=== PATIENT | male | born 1940 | race Caucasian/White ===

== ENCOUNTER 2019-04-13 09:06 | Inpatient (IN) ==
--- NOTE | 2019-03-25 14:31 | Anesthesiology Consultation ---
Date of Service March 25, 2019 Assessment & Plan (1) Encounter for pre-operative examination: - Awaiting surgeon-ordered PCP clearance scheduled scheduled 04/02 ([facility]) and response regarding elevated potassium/creatinine response. - Awaiting cardiology office visit scheduled 03/2019 ([facility]). - Check [facility] AM DOS Chart Review Chart Review: Patient seen in Pre Admission Testing Teaching & Discussion Pre-Anesthesia Teaching/Discussion Notes: Instructed NPO after midnight before surgery,except medications with 15 cc of water. Medication instructions provided according to the PAT guidelines. History Surgery Operation Date: 04/13/19 07:00 Proposed Procedures p Right Total Knee Revision Arthroplasty, Tibia and Femur - Parmjit Posada, Height/Weight Height: 5 ft 10.5 in Weight: 81.2 kg Allergies Allergy/AdvReac Type Severity Reaction Status Date / Time acetaminophen [From Tylox] Allergy Unknown unknown Verified 03/25/19 15:10 reaction oxycodone [From Tylox] Allergy Unknown unknown Verified 03/25/19 15:10 reaction morphine Allergy unknown Verified 03/25/19 15:10 reaction naloxone Allergy unknown Verified 03/25/19 15:10 reaction pentazocine Allergy unknown Verified 03/25/19 15:10 reaction Medications Home Medications Medication Instructions Recorded Confirmed Last Taken Metoprolol 50 mg PO BID 03/19/19 03/19/19 Unknown acetaminophen [Tylenol Arthritis 650 mg PO BID 03/19/19 03/19/19 Unknown Pain] aspirin [Aspir-81] 81 mg PO DAILY 03/19/19 03/19/19 Unknown cholecalciferol (vitamin D3) 2,000 unit PO DAILY 03/19/19 03/19/19 Unknown [Vitamin D3] cyanocobalamin (vitamin B-12) 500 mcg PO DAILY 03/19/19 03/19/19 Unknown [Vitamin B-12] gemfibrozil 600 mg PO BID 03/19/19 03/19/19 Unknown glipizide 5 mg PO DAILY 03/19/19 03/19/19 Unknown magnesium 250 mg PO DAILY 03/19/19 03/19/19 Unknown metformin 1,000 mg PO BID 03/19/19 03/19/19 Unknown pravastatin 40 mg PO DAILY 03/19/19 03/19/19 Unknown pantoprazole 20 mg PO DAILY 03/25/19 03/25/19 Unknown Past Medical History Medical History Arthritis Diabetes NIDDM History of heart attack 1991 - s/p CABG Hyperlipidemia Hypertension Poor historian Exercise / Class Metabolic Activity III < 4 Walking/Shop/Light housework (cane prn) Past Family History Family History Brother Family history of colon cancer Son Family history of pancreatic cancer Has 1 child Past Surgical History Surgical History History of cardiac cath no stents, s/p CABG (1991) History of colonoscopy History of surgery on extremity L LEG History of total right knee replacement Social History Smoking Status: Former smoker Do You Dip or Chew Tobacco: Yes (3/4 CAN DAILY / ADVISED NPO) Smoking End Date: YRS AGO Hx Alcohol Use: Yes Alcohol type: beer alcohol intake frequency: a few times a month Hx Substance Use: No substance use type: does not use Review of Systems Patient denies chest pain, shortness of breath, dyspnea on exertion, joint pain, reflux, cough, wheezing, palpitations. Physical Exam Vital Signs VITALS BP 122/61 P 69 TEMP 97.7 SP02 99%RA RESP 18 PHYSICAL Full neck and c-spine range of motion. Full TMJ range of motion. TMD 3 finger breaths Mallampati Score 2 Dentition: intact Lungs: clear throughout to auscultation Cardiac: regular rate and rhythm, no murmurs noted Spine: normal Carotid arteries: negative bruit Extremities: no edema Trimmed gamez Testing Laboratory Results 03/25/19 14:58 03/25/19 14:58 PT 10.3 Seconds (9.0-12.0) 03/25/19 14:58 INR 1.0 (0.9-1.1) 03/25/19 14:58 APTT 27.1 Seconds (21.0-31.0) 03/25/19 14:58 Hemoglobin A1c 5.4 % (4.5-5.6) 03/25/19 14:58 Urine Color Yellow 03/25/19 14:58 Urine Appearance Clear (Clear) 03/25/19 14:58 Urine pH 5.0 (4.5-7.5) 03/25/19 14:58 Ur Specific [place] 1.016 (1.000-1.030) 03/25/19 14:58 Urine Protein Negative (Negative) 03/25/19 14:58 Urine Glucose (UA) Negative (Negative) 03/25/19 14:58 Urine Ketones Negative (Negative) 03/25/19 14:58 Urine Nitrite Negative (Negative) 03/25/19 14:58 Ur Leukocyte Esterase Negative (Negative) 03/25/19 14:58 Blood Type O Positive 03/25/19 14:58 Antibody Screen NEGATIVE 03/25/19 14:58 Chest X-Ray Date: 03/25/19 Prior median sternotomy. Lungs are clear. Diaphragms are smooth. IMPRESSION: No acute process.
[2019-03-25 15:28] LABS: Basophils # (auto) 0.03 K/uL (0-0.2); Basophils % (auto) 0.4 %; Eosinophils # (auto) 0.04 K/uL (0-0.5); Eosinophils % (auto) 0.6 %; Hematocrit (blood only) 38.4 % (42-52); Hemoglobin 13.3 g/dL (14.0-18.0); Lymphocytes # (auto) 2.11 K/uL (1.2-3.4); Lymphocytes % (auto) 29.6 %; Mean Corpuscular Hemoglobin 31.6 pg (25-34); Mean Corpuscular Hgb Conc 34.6 g/dL (32-36); Mean Corpuscular Volume 91.2 fL (80-100); Mean Platelet Volume 11.8 fL (7.4-10.4); Monocytes # (auto) 0.73 K/uL (0.11-0.59); Monocytes % (auto) 10.2 %; Neutrophils # (auto) 4.23 K/uL (1.4-6.5); Neutrophils % (auto) 59.2 %; Platelet Count 202 K/uL (130-400); RDW Coefficient of Variation 13.5 % (11.5-14.5); RDW Standard Deviation 44.9 fL (36.4-46.3); Red Blood Count 4.21 M/uL (4.7-6.1); White Blood Count 7.14 K/uL (4.8-10.8)
[2019-03-25 15:36] LABS: Appearance Urine Clear (Clear); Bilirubin Urine Negative (Negative); Blood Urine Negative (Negative); Color Urine Yellow; Glucose Urine UA Negative (Negative); Ketones Urine Negative (Negative); Leukocyte Esterase Urine Negative (Negative); Nitrite Urine Negative (Negative); Protein Urine Negative (Negative); Specific Gravity Urine 1.016 (1.000-1.030); Urobilinogen Urine Negative (Negative)
--- NOTE | 2019-03-25 15:36 | XRay Report ---
XR chest Pre-admission PA/Lat CLINICAL HISTORY: pat preoperative evaluation COMPARISON STUDY: No previous studies for comparison. FINDINGS: Prior median sternotomy. Lungs are clear. Diaphragms are smooth. IMPRESSION: No acute process. ACT 112: Negative or not required by law. The above report was generated using voice recognition software. It may contain grammatical, syntax or spelling errors. Electronically signed by: Carlitos Steve M.D. 03/25/2019 3:34 PM
[2019-03-25 15:47] LABS: Partial Thromboplastin Time 27.1 Seconds (21.0-31.0); Prothrombin Time 10.3 Seconds (9.0-12.0)
[2019-03-25 16:04] LABS: Albumin Level 3.9 gm/dl (3.4-5.0); Calcium 9.6 mg/dl (8.5-10.1); Est GFR (African American) 44.4; Est GFR (Non-African American) 38.3; Potassium 5.8 mmol/L (3.5-5.1)
[2019-03-26 05:41] LABS: Estimated Average Glucose 108 mg/dl; Hemoglobin A1C 5.4 % (4.5-5.6)
--- NOTE | 2019-03-26 16:37 | Electrocardiogram Report ---
Test Reason : Blood Pressure : / mmHG Vent. Rate : 072 BPM Atrial Rate : 072 BPM P-R Int : 312 ms QRS Dur : 094 ms QT Int : 406 ms P-R-T Axes : 067 008 040 degrees QTc Int : 444 ms Poor data quality, interpretation may be adversely affected Sinus rhythm with 1st degree A-V block with occasional Premature ventricular complexes Low voltage QRS Borderline ECG No previous ECGs available Confirmed by Gal Mayfield ([id number]) on 03/26/2019 4:36:37 PM Referred By: Parmjit Posada Confirmed By:Gal Mayfield
--- NOTE | 2019-04-12 16:16 | History & Physical Report ---
Date of Service April 12, 2019 Assessment & Plan (1) Failed total right knee replacement: I have indicated the patient for revision right total knee replacement. The risks, benefits and complications of surgery were explained to the patient which include but not limited to infection, acute blood loss, DVT/PE, injury to nerves, vessels, bone, soft tissue, arthrofibrosis, chronic pain, failure of the prosthesis, knee dislocation, leg length discrepancy, need for additional surgery, cardiac and pulmonary events and . The patient wished to proceed with surgery and informed consent was obtained at this time. We will plan for lovenox post-operatively for DVT prophylaxis. Upon discharge the patient will be discharged home with home health services. Appropriate clearances by PCP and cardiology were obtained. Patient has history of CKD and DM with Cr baseline at 1.69/1.70 pre-operatively, will monitor and avoid nephrotoxic medication. 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 Primary total knee surgery performed in [address] Finney in [facility]. Patient was worked up pre-operatively, bone scan and inflammatory labs negative for infection. The patient has failed outpatient conservative treatments to this point which included NSAIDs, bracing and a home exercise/walking program. The patient's pain and limited function have progressed to the point where they severely hinder their activities of daily living and they no longer tolerate exercise programs. They are requesting to proceed with revision total knee replacement surgery. Allergies Allergy/AdvReac Type Severity Reaction Status Date / Time acetaminophen [From Tylox] Allergy Unknown unknown Verified 04/13/19 09:47 reaction oxycodone [From Tylox] Allergy Unknown unknown Verified 04/13/19 09:47 reaction morphine Allergy unknown Verified 04/13/19 09:47 reaction naloxone Allergy unknown Verified 04/13/19 09:47 reaction pentazocine Allergy unknown Verified 04/13/19 09:47 reaction Home Medications Home Medications Medication Instructions Recorded Confirmed Type Metoprolol 50 mg PO BID 03/19/19 04/13/19 History acetaminophen [Tylenol Arthritis 650 mg PO BID 03/19/19 04/13/19 History Pain] aspirin [Aspir-81] 81 mg PO DAILY 03/19/19 04/13/19 History cholecalciferol (vitamin D3) 2,000 unit PO DAILY 03/19/19 04/13/19 History [Vitamin D3] cyanocobalamin (vitamin B-12) 500 mcg PO DAILY 03/19/19 04/13/19 History [Vitamin B-12] gemfibrozil 600 mg PO BID 03/19/19 04/13/19 History glipizide 5 mg PO DAILY 03/19/19 04/13/19 History magnesium 250 mg PO DAILY 03/19/19 04/13/19 History metformin 1,000 mg PO BID 03/19/19 04/13/19 History pravastatin 40 mg PO DAILY 03/19/19 04/13/19 History pantoprazole 20 mg PO DAILY 03/25/19 04/13/19 History Past Med/Surg History Medical History (Updated 04/13/19 @ 11:03 by Johnson Mercado MD) Arthritis Diabetes NIDDM History of heart attack 1991 - s/p CABG Hyperlipidemia Hypertension Poor historian Renal insufficiency Surgical History (Updated 04/13/19 @ 11:04 by Johnson Mercado MD) History of cardiac cath no stents, s/p CABG (1991) History of colonoscopy History of surgery on extremity L LEG History of total right knee replacement Hx of CABG Family History Brother Family history of colon cancer Son Family history of pancreatic cancer Has 1 child Social History Preferred Language: Frisian Communication Ability: Effective Director [employer] Required: No Beliefs That Will Affect Care: Mandaen Mandaen Beliefs: BUDDHISM Current Living Situation: Alone Other Information That Helps Us Care for You: No Feels Safe at Home: Yes Smoking Status: Former smoker Do You Dip or Chew Tobacco: Yes (3/4 CAN DAILY / ADVISED NPO) ; Smoking End Date: YRS AGO ; Hx Alcohol Use: Yes Alcohol type: beer Hx Substance Use: No Review of Systems Review of Systems: All systems reviewed & are unremarkable except as noted in HPI & below Constitutional: as per Subjective / HPI Physical Exam Physical Exam: RLE NVSI +EHL/FHL/TA/GS SILT grossly, +2 DP pulse, compartments soft NT, limited painful ROM, 5-120 degrees of flexion, moderate varus/valgus instability, +crepitus Constitutional: WD/WN, vitals as above Eyes: PERRL, conjunctivae normal, anicteric sclerae ENMT: external ear and nose normal, oropharynx normal Neck: trachea midline, no thyromegaly Respiratory: normal respiratory effort, lungs clear to auscultation Cardiovascular: RRR, no murmur, no edema Gastrointestinal (Abdomen): normal bowel sounds, soft, nontender, no hepatospl enomegaly Musculoskeletal: no cyanosis or clubbing, extremities motor strength 5/5 Skin: no rashes, warm and dry Neurologic: patellar DTR's 2+ bilat, sensation intact Psychiatric: A+Ox3, euthymic affect Lymphatic: no cervical or axillary lymphadenopathy Results & Data Diagnostic Findings Multiple views of the right knee demonstrates gross loosening of the tibial component with subsidence/varus deformity, lateral translation and degenerative patella with osteophytes.
[~2019-04-13 09:06] MED LIST: ACETAMINOPHEN 500 MG TAB PO SCH; BUPIVACAINE 0.5 % 5 MG/1 ML PF 10ML VIAL ONE; CEFAZOLIN 2000MG 2,000 MG/15 ML SYR IV SCH; CeleBREX 200 MG CAP PO SCH; EPINEPHrine INJ 1 MG/ML AMP ONE; FAMOTIDINE 20 MG TAB PO SCH; LR 500ML BOLUS, THEN 15ML/HR IV SCH; METOCLOPRAMIDE HCL 10 MG TABLET PO SCH; ROPIVACAINE 0.5% 5 MG/ML 30 ML VIAL ONE; ROPIVACAINE 0.5% HCL/PF 150 MG, BUPIVACAINE 0.5% MPF 30 ML, EPINEPHrine 30MG/30ML (OR U... INFIL SCH; SODIUM CHLORIDE 0.9% 1,000 ML IV SCH; TRANEXAMIC ACID / 0.7% NACL 1,000 MG/100 ML BAG IV SCH; TRANEXAMIC ACID 1,000 MG **IV Intra-op IV SCH; dexAMETHasone 4 MG TAB PO SCH
[2019-04-13] MEDS ORDERED: fentaNYL citrate 100 MCG/2 ML VIAL ONE ×2 (09:32→14:50)
[2019-04-13] MEDS ORDERED: MIDAZOLAM HCL 1 MG/ML 2ML VIAL ONE ×2 (09:32)
[2019-04-13] MEDS ORDERED: ONDANSETRON INJ 2 MG/ML 2 ML VIAL IV PRN ×2 (10:00→17:45)
[2019-04-13] MEDS ORDERED: ATROPINE SULFATE 0.1 MG/ML 10ML SYR IV PRN (10:00)
[2019-04-13] MEDS ORDERED: ePHEDrine sulfate 50 MG/ML AMP IV PRN (10:00)
[2019-04-13] MEDS ORDERED: fentaNYL citrate 100 MCG/2 ML VIAL IV PRN (10:00)
[2019-04-13] MEDS ORDERED: MEPERIDINE HCL 25 MG/ML CARP IV PRN (10:00)
[2019-04-13] MEDS ORDERED: PHENYLEPHRINE 100MCG/ML 5ML SYR IV PRN (10:00)
[2019-04-13] MEDS ORDERED: LABETALOL HCL IV 5 MG/ML 20ML IV PRN (10:00)
[2019-04-13 10:27] LABS: BUN Creatinine Ratio 19.4 (10-20); Calcium 9.2 mg/dl (8.5-10.1); Creatinine Clr Calc Pharmacy 43.4 ml/min; Est GFR (African American) 53.1; Est GFR (Non-African American) 45.8; Potassium 4.5 mmol/L (3.5-5.1)
[2019-04-13] MEDS ORDERED: BACITRACIN INJ 50,000 UNIT VIAL ONE (10:33)
[2019-04-13] MEDS ORDERED: ORTHO JOINT ANESTHETIC ONE (10:33)
--- NOTE | 2019-04-13 11:06 | History & Physical Bridge Note ---
Date of Service April 13, 2019 History & Physical Bridge Note I have examined the patient, reviewed the History & Physical and in the interval since the performance of the History & Physical I have noted the following changes of clinical significance: no changes noted
[2019-04-13] MEDS ORDERED: EPINEPHrine INJ 1 MG/ML AMP ONE (12:29)
[2019-04-13] MEDS ORDERED: PROPOFOL IV EMULSION 10 MG/ML 20 ML VIAL IV ONE ×6 (13:49→16:21)
--- NOTE | 2019-04-13 16:16 | Post Operative Brief Note ---
Immediate Post Op Note v1 Date of Surgery April 13, 2019 Pre & Post Diagnosis Operation Date: 04/13/19 11:30 Pre-Op Diagnosis: Failed Right Total Knee Arthroplasty with Aseptic Loosening Post-Op Diagnosis: Failed Right Total Knee Arthroplasty with Aseptic Loosening I identified the patient and participated in the time-out.: Yes Procedure Operation Date: 04/13/19 11:30 Actual Procedures p Right Total Knee Revision Arthroplasty - Tibia And Femur(Right) - Parmjit Posada DO Surgeon Parmjit Posada DO Asset Protection Manager Mariusz Carmichael Estimated Blood Loss 225 Findings Consistent with Post-Op Diagnosis Fluids 2200 cc LR Drains Esquivel Catheter (A 16 [place] esquivel catheter was inserted by Rona Szymanski RN, without difficulty, clear yellow urine obtained, output to be monitored by Anesthesia.) and Hemovac Drain Anesthesia Type Spinal MAC Complications none Disposition Disposition: Recovery Room Overlapping Procedure I was present for: the critical portions of procedure. I was immediately available: during the entire case. Back up surgeon: was not required during procedure.
--- NOTE | 2019-04-13 16:18 | Operative Report ---
Post Operative Report Pre & Post Diagnosis Operation Date: 04/13/19 11:30 Pre-Op Diagnosis: Failed Right Total Knee Arthroplasty with Aseptic Loosening Post-Op Diagnosis: Failed Right Total Knee Arthroplasty with Aseptic Loosening I identified the patient and participated in the time-out.: Yes Procedure Operation Date: 04/13/19 11:30 Actual Procedures p Right Total Knee Revision Arthroplasty - Tibia And Femur(Right) - Parmjit Posada DO Surgeon Parmjit Posada DO Firearms Specialist Mariusz Carmichael Estimated Blood Loss 225 Findings Consistent with Post-Op Diagnosis Fluids 2200 cc LR Specimens none Drains HMV drain deep Anesthesia Type Spinal MAC Disposition Disposition: Recovery Room Indications The patient is a 78 year old male who presents with complaints of painful right total knee with aseptic loosening. Primary total knee surgery performed in [address] Finney in [facility]. Patient was worked up pre-operatively, bone scan and inflammatory labs negative for infection. The patient has failed outpatient conservative treatments to this point which included NSAIDs, bracing and a home exercise/walking program. The patient's pain and limited function have progressed to the point where they severely hinder their activities of daily living and they no longer tolerate exercise programs. They are requesting to proceed with revision total knee replacement surgery. I have indicated the patient for revision right total knee replacement. The risks, benefits and complications of surgery were explained to the patient which include but not limited to infection, acute blood loss, DVT/PE, injury to nerves, vessels, bone, soft tissue, arthrofibrosis, chronic pain, failure of the prosthesis, knee dislocation, leg length discrepancy, need for additional surgery, cardiac and pulmonary events and . The patient wished to proceed with surgery and informed consent was obtained at this time. We will plan for lovenox post-operatively for DVT prophylaxis. Upon discharge the patient will be discharged home with home health services. Appropriate clearances by PCP and cardiology were obtained. Patient has history of CKD and DM with Cr baseline at 1.69/1.70 pre-operatively, will monitor and avoid nephrotoxic medication. Description of Procedure Components: [employer] Nexgen LCCK: Femur LCCK Size F, 10mm distal lateral augment, [id number] offset stem. Tibia Size 5 AP wedge, 15mm medial augment, 10mm lateral augment, [id number] offset stem, tibial articular surface Size 17mm LCCK. Following induction of spinal anesthesia, a tourniquet was applied to the proximal aspect of the thigh and the patient's right leg was prepped and draped in the usual sterile manner. A timeout was performed and site ryan verified. Limb was exsanguinated with an esmarch bandage and tourniquet was inflated to 300 mmHg. The prior incision was identified and a longitudinal midline incision was made over the anterior knee. Previous surgical scar was excised. Subcutaneous tissue was sharply dissected down to fascia. Electrocautery was used for hemostasis. Next a medial parapatellar arthrotomy was performed. Meticulous removal of hypertrophic synovium and scar tissue was removed with Bovie. The patella was subluxed laterally and the knee was flexed. A ford retractor was used to expose the synovium above on the anterior aspect of the femur and removed down to bone. Next, the anterior fat pad was removed to aid in visualization. The medial face of the tibia was cleared of soft tissue first with a bovie and a ramon elevator. This tissue was retracted posteriorly using a blunt hohmann. Once adequate access was obtained to the total knee prosthesis we removed the tibial articular surface. Next we turned our attention to the femoral component and utilizing a microsagittal saw loosen the interface between the distal femur component and cement followed by flexible osteotomes. 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 Meticulous removal of residual cement and soft tissue from the bone was performed. Next we turned our attention to the proximal tibia, the tibia component was grossly loose and free floating inside the bone. Utilizing to flat wide osteotomes we were able to lever the component out of the bone. Once again there was minimal bone loss. Next we meticulously removed remaining cement and cleared the distal femur proximal tibia and any remaining soft tissue. We gained access to both the intramedullary tibia and femur and intramedullary membrane was scraped with curved curettes. Next sequential intramedullary reaming was performed by hand on both the tibia and the femur until adequate bone chatter was appreciated. Reaming was stopped at 15 mm on the tibia and 18 mm on the femur. At this time the tourniquet was dropped at 60 minutes. The intramedullary reamer was left in the tibia and the T-handle was removed. The proximal tibia cutting guide was attached to the reamer and pinned in place. Intramedullary reamer was removed and the proximal tibia was cut removing minimal bone until there was a flat cut perpendicular to the mechanical axis. There was a defect to the medial tibial plateau. A 5mm medial augment cut was performed. We confirmed the cut with drop ronnell and spacer block. Next the proximal tibia was assessed and two bent Hohmanns were placed medial and lateral to aid in visualization. The appropriate tibia size and rotation was selected and a size 5 AP wedge tibial plate with 10mm lateral and 15mm medial augments was pinned into place with appropriate rotation. Preparation of the tibia was completed utilizing the matching tibial drill and broach. The trial tibial plate was removed and the trial size 5 tibia with offset 15 x 100mm stem with 10mm lateral and 15mm medial augments was attached to the proximal tibia and impacted into place. This provided good fit and fill of the proximal tibia. Next we turned our attention to the distal femur. Appropriate sized provisional femoral component was fixed to the distal femur inline with the transcondylar axis. Distal femur lateral condyle augment cut was performed eliminating the defect left behind from the bone cyst. Gold pins placed in distal femur and provisional femoral component removed. LCCK 4 in 1 femoral cut block with distal lateral 10mm augment was place over gold pins then pinned into place. Gold pins removed and distal femur bone cuts were performed. Box cut was performed utilizing a reciprocal saw and the pins and 4 in 1 guide removed. The final trial size F LCCK femur with offset [id number] stem with 10mm distal lateral femoral augment was inserted and impacted into place. A 12mm LPS tibial articular surface was trialed. Sequential trialing of tibial sizes was performed, increasing to a tibial articular surface size 17mm LCCK. Varus- valgus balance was assessed in 0 degrees of extension and 30, 60 and 90 degrees of flexion. A final tibial articular surface size 17mm LCCK was chosen. Access was gained to the patella and meticulous removal of fibrous soft tissue and osteophytes was performed. The patella was very thin, 9-10mm in thickness. Due to lack of bone stock, the patella was left unresurfaced. The knee was found to be well balanced, well aligned, with excellent patellar tracking. The leg was rewrapped with new Esmarch and tourniquet inflated once again at this time. The trials were removed and final components were obtained and assembled on the back table. Aquamantys was utilized for any bleeders and Orth omix solution injected into the posterior capsule. The knee was irrigated with copious amounts of sterile saline solution mixed with bacitracin. Access to the proximal tibia was once again obtained utilizing two bent hohmann retractors and the proximal tibia and distal femur were dried with lap sponges. The final components were cemented into place utilizing Palacos cement and all excess cement was removed. A trial tibial articular surface was placed while cemented hardened. Knee stability was once again assessed and the final component inserted. The knee was injected with the remaining Orthomix solution and irrigated once more with sterile saline solution mixed with bacitracin. Hemovac drains 2 were inserted deep to the capsule. The capsulotomy was closed with #1 Vicryl followed by subcutaneous closure with 2-0 Vicryl suture. Skin closure was performed using bita, sterile dressings were applied which included Prevena incisional vac, drain sponge, webrill and josh wrap. The patient was extubated in the OR and transported to the PACU in stable condition. Due to the complex nature of the procedure, the entire surgery was performed with the operational assistance of Mariusz carmichael PA-C. The circulation assistant, under direct supervision, was involved in the actual performance of all aspects of the surgical procedure including patient positioning, hemostasis, tissue retraction, instrument management and wound closure. I attest to the content of the Intraoperative Record and any orders documented therein. Any exceptions are noted below.
[2019-04-13] MEDS ORDERED: ONDANSETRON INJ 2 MG/ML 2 ML VIAL ONE (16:21)
[2019-04-13] MEDS ORDERED: HYDROmorphone HCL 2 MG TAB PO PRN (16:38)
--- NOTE | 2019-04-13 17:21 | Anesthesiology Progress Note ---
Date of Service April 13, 2019 Anesthesia Post Procedure Vital Signs Vital Signs: Temp Pulse Pulse Resp BP Pulse Ox 04/13/19 17:10 36.7 C 73 16 111/59 L 94 04/13/19 17:00 76 27 H 109/63 94 04/13/19 16:50 74 17 106/56 L 93 04/13/19 16:42 36.5 C 78 16 88/50 L 98 04/13/19 10:04 36.5 C 75 18 121/69 98 Transfer of Care Handoff Completed per policy Notes Mental Status: alert / awake / arousable Patient Amnestic to Procedure: Yes Nausea / Vomiting: adequately controlled Pain: adequately controlled Airway Patency, RR, SpO2: stable & adequate BP & HR: stable & adequate Hydration State: stable & adequate Neuraxial Anesthesia: was administered and sensory block is resolving Anesthetic Complications: no major complications apparent
[2019-04-13] MEDS ORDERED: MAGNESIUM HYDROXIDE SUSP 30 ML UDC PO PRN (17:45)
[2019-04-13] MEDS ORDERED: bisacodyL 10 MG SUPP PR PRN (17:45)
[2019-04-13] MEDS ORDERED: NALOXONE HCL 0.4 MG/1 ML VIAL/CARP IV PRN (17:45)
[2019-04-13] MEDS ORDERED: METOCLOPRAMIDE HCL INJ 5 MG/ML 2 ML VIAL IV PRN (17:45)
[2019-04-13] MEDS ORDERED: HYDROmorphone INJ 0.5 MG/0.5 ML SYR IV PRN (17:45)
[2019-04-13] MEDS ORDERED: PHARMACY GLYCEMIC MGMT CONSULT PRN (17:45)
[2019-04-13] MEDS ORDERED: TRAMADOL HCL 50 MG TABLET PO PRN (17:45)
--- NOTE | 2019-04-13 17:59 | XRay Report ---
RIGHT KNEE 2 VIEWS History: Right total knee arthroplasty. Degenerative arthritis. Postop. FINDINGS: The patient is status post a right total knee arthroplasty. The hardware is intact. No frac ture or dislocation. Skin bita and surgical drains are in place. IMPRESSION: Right total knee arthroplasty. No evidence for hardware complication. ACT 112: Negative or not required by law. Electronically signed by: Johnson Alvarez M.D. 04/13/2019 5:58 PM
[2019-04-13] MEDS ORDERED: GLUCOSE 40% GEL 15 GM TUBE PO PRN (18:00)
[2019-04-13] MEDS ORDERED: GLUCAGON FOR INJ 1 MG VIAL IM PRN (18:00)
[2019-04-13] MEDS ORDERED: DEXTROSE 50% 50 ML SYRINGE IV PRN (18:00)
[2019-04-13] MEDS ORDERED: GLUCOSE 10 TABS/TUBE PO PRN (18:00)
[2019-04-13] MEDS ORDERED: NovoLIN-N (NPH) PER UNIT CHARGE SQ ONE (18:00)
[2019-04-13] MEDS ORDERED: CARBOHYDRATES FOR HYPOGLYCEMIA PO PRN (18:00)
--- NOTE | 2019-04-13 19:05 | Orthopedic Progress Note ---
Date of Service April 13, 2019 Assessment & Plan (1) Failed total right knee replacement: s/p Revision R TKA -ancef x 24 -DVT ppx: SCDs, TEDs, Lovenox -WBAT RLE -PT/OT -PO XR demonstrates well aligned well fixed prothesis without fracture/dislocation -am labs -DC planning Subjective Post Operative Progress Note Patient seen sitting up in bed, comfortable, denies complaints, pain well controlled, no acute issues. Spinal slowly wearing off. Review of Systems Review of Systems: All systems reviewed & are unremarkable except as noted in HPI & below Constitutional: as per Subjective / HPI Physical Exam Physical Exam: Limited secondary to spinal anesthesia, +2 DP pulse, compartments soft NT, dressing CDI Constitutional: WD/WN, vitals as above Results & Data ([facility]) Vital Signs (Past 12 Hours) Vital Signs Temp Pulse Pulse Resp BP Pulse Ox 04/13/19 18:46 36.7 C 72 18 113/59 L 98 04/13/19 17:30 36.7 C 80 19 111/70 95 04/13/19 17:20 36.7 C 75 15 108/57 L 95 04/13/19 17:10 36.7 C 73 16 111/59 L 94 04/13/19 17:00 76 27 H 109/63 94 04/13/19 16:50 74 17 106/56 L 93 04/13/19 16:42 36.5 C 78 16 88/50 L 98 04/13/19 10:04 36.5 C 75 18 121/69 98
[2019-04-13] MEDS: INSULIN ASPART 100 UNITS/ML 3 ML PEN SC SCH ×2 (19:12→21:30)
[2019-04-13] MEDS: SODIUM CHLORIDE 0.9% 1000ML 1,000 ML IV SCH (19:27)
[2019-04-13] MEDS: CEFAZOLIN 2000MG 2,000 MG/15 ML SYR IV SCH (21:22)
[2019-04-13] MEDS: DOCUSATE SODIUM 100 MG CAP PO SCH (21:22)
[2019-04-13] MEDS: ACETAMINOPHEN 500 MG TAB PO SCH (21:23)
[2019-04-13] MEDS: METOPROLOL TARTRATE 50 MG TAB PO SCH (21:23)
[2019-04-13] MEDS: SENNA 8.6 MG TAB PO SCH (21:23)
[2019-04-14] MEDS: INSULIN ASPART 100 UNITS/ML 3 ML PEN SC SCH ×6 (00:55→21:11)
[2019-04-14] MEDS: CEFAZOLIN 2000MG 2,000 MG/15 ML SYR IV SCH (04:43)
[2019-04-14 05:23] LABS: Hematocrit (blood only) 31.5 % (42-52); Hemoglobin 10.6 g/dL (14.0-18.0); Mean Corpuscular Hemoglobin 30.8 pg (25-34); Mean Corpuscular Hgb Conc 33.7 g/dL (32-36); Mean Corpuscular Volume 91.6 fL (80-100); Mean Platelet Volume 12.6 fL (7.4-10.4); Platelet Count 177 K/uL (130-400); RDW Coefficient of Variation 13.6 % (11.5-14.5); RDW Standard Deviation 44.9 fL (36.4-46.3); Red Blood Count 3.44 M/uL (4.7-6.1); White Blood Count 14.35 K/uL (4.8-10.8)
[2019-04-14] MEDS: ACETAMINOPHEN 500 MG TAB PO SCH ×3 (05:27→21:09)
[2019-04-14 05:46] LABS: BUN Creatinine Ratio 20.5 (10-20); Calcium 8.2 mg/dl (8.5-10.1); Creatinine Clr Calc Pharmacy 42.8 ml/min; Est GFR (African American) 52.2; Potassium 4.2 mmol/L (3.5-5.1)
[2019-04-14] MEDS: SODIUM CHLORIDE 0.9% 1000ML 1,000 ML IV SCH (06:13)
--- NOTE | 2019-04-14 07:33 | Orthopedic Progress Note ---
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 Patient reports RLE numbness and difficulty moving. Otherwise doing well. Recheck in afternoon patient reports improvement in sensation but weakness to his RLE . Ambulating well with PT. Review of Systems Review of Systems: All systems reviewed & are unremarkable except as noted in HPI & below Constitutional: as per Subjective / HPI Physical Exam Physical Exam: RLE NVSI +EHL/FHL, decreased MS to TA, SILT grossly, +2 DP pulse, compartments soft NT, dressing cdi. Constitutional: WD/WN, vitals as above Results & Data ([facility]) Vital Signs (Past 12 Hours) Vital Signs Temp Pulse Resp BP Pulse Ox 04/14/19 07:03 37.1 C 82 16 93/50 L 95 04/14/19 04:15 36.9 C 80 16 108/63 93 04/13/19 22:56 36.8 C 70 16 110/57 L 96 04/13/19 20:50 36.9 C 89 18 116/56 L 95 04/13/19 19:59 36.5 C 85 19 115/53 L 97 Laboratory Results 04/14/19 04/14/19 04/14/19 Range/Units 04:44 04:44 04:42 WBC 14.35 H (4.8-10.8) K/uL RBC 3.44 L (4.7-6.1) M/uL Hgb 10.6 L (14.0-18.0) g/dL Hct 31.5 L (42-52) % MCV 91.6 (80-100) fL MCH 30.8 (25-34) pg MCHC 33.7 (32-36) g/dL RDW Std Deviation 44.9 (36.4-46.3) fL RDW Coeff of Oleksandr 13.6 (11.5-14.5) % Plt Count 177 (130-400) K/uL MPV 12.6 H (7.4-10.4) fL Sodium 141 (136-145) mmol/L Potassium 4.2 (3.5-5.1) mmol/L Chloride 111 H (98-107) mmol/L Carbon Dioxide 23 (21-32) mmol/L Anion Gap 7.0 (3-11) BUN 30 H (7-18) mg/dl Creatinine 1.47 H (0.6-1.4) mg/dl Est Cr Clr Drug Dosing 42.8 ml/min Est GFR ( Amer) 52.2 Est GFR (Non-Af Amer) 45.0 BUN/Creatinine Ratio 20.5 H (10-20) Glucose 62 L (70-99) mg/dl POC Glucose 74 (70-99) mg/dl Calcium 8.2 L (8.5-10.1) mg/dl Blood Type Antibody Screen Crossmatch Draw and Hold 04/14/19 04/14/19 04/14/19 Range/Units 04:20 04:18 00:22 WBC (4.8-10.8) K/uL RBC (4.7-6.1) M/uL Hgb (14.0-18.0) g/dL Hct (42-52) % MCV (80-100) fL MCH (25-34) pg MCHC (32-36) g/dL RDW Std Deviation (36.4-46.3) fL RDW Coeff of Oleksandr (11.5-14.5) % Plt Count (130-400) K/uL MPV (7.4-10.4) fL Sodium (136-145) mmol/L Potassium (3.5-5.1) mmol/L Chloride (98-107) mmol/L Carbon Dioxide (21-32) mmol/L Anion Gap (3-11) BUN (7-18) mg/dl Creatinine (0.6-1.4) mg/dl Est Cr Clr Drug Dosing ml/min Est GFR ( Amer) Est GFR (Non-Af Amer) BUN/Creatinine Ratio (10-20) Glucose (70-99) mg/dl POC Glucose 49 L* 48 L* 133 H (70-99) mg/dl Calcium (8.5-10.1) mg/dl Blood Type Antibody Screen Crossmatch Draw and Hold 04/13/19 04/13/19 04/13/19 Range/Units 20:49 20:48 17:52 WBC (4.8-10.8) K/uL RBC (4.7-6.1) M/uL Hgb (14.0-18.0) g/dL Hct (42-52) % MCV (80-100) fL MCH (25-34) pg MCHC (32-36) g/dL RDW Std Deviation (36.4-46.3) fL RDW Coeff of Oleksandr (11.5-14.5) % Plt Count (130-400) K/uL MPV (7.4-10.4) fL Sodium (136-145) mmol/L Potassium (3.5-5.1) mmol/L Chloride (98-107) mmol/L Carbon Dioxide (21-32) mmol/L Anion Gap (3-11) BUN (7-18) mg/dl Creatinine (0.6-1.4) mg/dl Est Cr Clr Drug Dosing ml/min Est GFR ( Amer) Est GFR (Non-Af Amer) BUN/Creatinine Ratio (10-20) Glucose (70-99) mg/dl POC Glucose 280 H 315 H* 256 H (70-99) mg/dl Calcium (8.5-10.1) mg/dl Blood Type Antibody Screen Crossmatch Draw and Hold 04/13/19 04/13/19 04/13/19 Range/Units 16:46 10:00 09:53 WBC (4.8-10.8) K/uL RBC (4.7-6.1) M/uL Hgb (14.0-18.0) g/dL Hct (42-52) % MCV (80-100) fL MCH (25-34) pg MCHC (32-36) g/dL RDW Std Deviation (36.4-46.3) fL RDW Coeff of Oleksandr (11.5-14.5) % Plt Count (130-400) K/uL MPV (7.4-10.4) fL Sodium 138 (136-145) mmol/L Potassium 4.5 (3.5-5.1) mmol/L Chloride 108 H (98-107) mmol/L Carbon Dioxide 24 (21-32) mmol/L Anion Gap 6.0 (3-11) BUN 28 H (7-18) mg/dl Creatinine 1.45 H (0.6-1.4) mg/dl Est Cr Clr Drug Dosing 43.4 ml/min Est GFR ( Amer) 53.1 Est GFR (Non-Af Amer) 45.8 BUN/Creatinine Ratio 19.4 (10-20) Glucose 156 H (70-99) mg/dl POC Glucose 204 H (70-99) mg/dl Calcium 9.2 (8.5-10.1) mg/dl Blood Type O Positive Antibody Screen NEGATIVE Crossmatch See Detail Draw and Hold Cancelled 04/13/19 Range/Units 09:50 WBC (4.8-10.8) K/uL RBC (4.7-6.1) M/uL Hgb (14.0-18.0) g/dL Hct (42-52) % MCV (80-100) fL MCH (25-34) pg MCHC (32-36) g/dL RDW Std Deviation (36.4-46.3) fL RDW Coeff of Oleksandr (11.5-14.5) % Plt Count (130-400) K/uL MPV (7.4-10.4) fL Sodium (136-145) mmol/L Potassium (3.5-5.1) mmol/L Chloride (98-107) mmol/L Carbon Dioxide (21-32) mmol/L Anion Gap (3-11) BUN (7-18) mg/dl Creatinine (0.6-1.4) mg/dl Est Cr Clr Drug Dosing ml/min Est GFR ( Amer) Est GFR (Non-Af Amer) BUN/Creatinine Ratio (10-20) Glucose (70-99) mg/dl POC Glucose 152 H (70-99) mg/dl Calcium (8.5-10.1) mg/dl Blood Type Antibody Screen Crossmatch Draw and Hold
--- NOTE | 2019-04-14 08:08 | Anesthesiology Progress Note ---
Date of Service April 14, 2019 Anesthesia Post Procedure Vital Signs Vital Signs: Temp Pulse Pulse Resp BP Pulse Ox 04/14/19 07:03 37.1 C 82 16 93/50 L 95 04/14/19 04:15 36.9 C 80 16 108/63 93 04/13/19 22:56 36.8 C 70 16 110/57 L 96 04/13/19 20:50 36.9 C 89 18 116/56 L 95 04/13/19 19:59 36.5 C 85 19 115/53 L 97 04/13/19 18:46 36.7 C 72 18 113/59 L 98 04/13/19 17:30 36.7 C 80 19 111/70 95 04/13/19 17:20 36.7 C 75 15 108/57 L 95 04/13/19 17:10 36.7 C 73 16 111/59 L 94 04/13/19 17:00 76 27 H 109/63 94 04/13/19 16:50 74 17 106/56 L 93 04/13/19 16:42 36.5 C 78 16 88/50 L 98 04/13/19 10:04 36.5 C 75 18 121/69 98 Notes Mental Status: alert / awake / arousable and participated in evaluation Patient Amnestic to Procedure: Yes Nausea / Vomiting: adequately controlled Pain: adequately controlled Airway Patency, RR, SpO2: stable & adequate Hydration State: stable & adequate Neuraxial Anesthesia: was administered and sensory block is resolving Anesthetic Complications: no major complications apparent and Pt Satisfied with anesthetic care
[2019-04-14] MEDS: METOPROLOL TARTRATE 50 MG TAB PO SCH ×2 (08:21→21:09)
[2019-04-14] MEDS: MULTIVITAMIN TAB PO SCH (08:21)
[2019-04-14] MEDS: PANTOprazole 40 MG TAB PO SCH (08:21)
[2019-04-14] MEDS: PRAVASTATIN SOD 40 MG TAB PO SCH (08:21)
[2019-04-14] MEDS: ENOXAPARIN INJ 40 MG/0.4 ML SYR SQ SCH (08:21)
[2019-04-14] MEDS: DOCUSATE SODIUM 100 MG CAP PO SCH ×2 (08:22→21:09)
--- NOTE | 2019-04-14 08:49 | Pharmacy Report ---
Glycemic Control Consultation - Date of Service April 14, 2019 - Scope Scope: Glycemic Pharmacist consulted by Dr Posada on 04/13 for glycemic control and to write orders per [facility] inpatient glycemic control protocol - Objective Weight: 80 kg Accuchecks BSG (last 24hrs): 04/13/19 04/13/19 04/13/19 09:50 10:00 16:46 Glucose 156 H POC Glucose 152 H 204 H 04/13/19 04/13/19 04/13/19 17:52 20:48 20:49 Glucose POC Glucose 256 H 315 H* 280 H 04/14/19 04/14/19 04/14/19 00:22 04:18 04:20 Glucose POC Glucose 133 H 48 L* 49 L* 04/14/19 04/14/19 04/14/19 04:42 04:44 08:04 Glucose 62 L POC Glucose 74 101 H Laboratory Data (last 24hrs): 04/13/19 04/14/19 10:00 04:44 Potassium 4.5 4.2 Carbon Dioxide 24 23 Anion Gap 6.0 7.0 Creatinine 1.45 H 1.47 H Est Cr Clr Drug Dosing 43.4 42.8 HbA1c: Hemoglobin A1c 5.4 % (4.5-5.6) 03/25/19 14:58 - Recent Pertinent Medications Outpatient Anti-diabetic Regimen: * glipizide 5 mg daily, metformin 1gm po bid * A1c = 1/15 % 5.4 The patient is currently receiving: * Basal insulin: NPH 25 units x 1 2/3 pm * Correctional Insulin: Novolog Correction per scale ACHS Goal Range: Low 110 mg/dL - High 140 mg/dL Correction Factor: 20 mg/dL/unit * Prandial insulin: Per carb ratio of 1 unit per 7 grams CHO consumed * Oral Agents: Risk Factors for Insulin Resistance: * Steroids: dex po preop, dex 4 topically * Recent Surgery: POD 1 * Diet: T2DM - Assessment & Plan Assessment & Plan: ASSESSMENT: * 78 year old male now s/p knee surgery. POD #1. Pharmacy consulted for glycemic management. Type 2 diabetic managed only on oral agents at home * Patient received 45 units of insulin yesterday, of which 25 units were NPH (to help cover steroids) * BSGs trending down quickly overnight - patient with low BSG of 49 mg/dL around 0400 - per nursing notes patient asymptomatic, given an orange juice and on recheck 74 mg/dL * Will loosen CR for this morning since steroids now wearing off - plan to restart home metformin around dinner today (remove CR) PLAN FOR INPATIENT GLYCEMIC CONTROL: * Holding outpatient oral diabetes medications - plan to restart home metformin 1 gm bid with dinner on 04/14 * Basal insulin * holding * Bolus insulin - remove CR with dinner / * NovoLog per scale ACHS or Q6hrs while NPO * Goal Range: Low 110 mg/dL - High 140 mg/dL * Correction Factor: 30 mg/dL/unit * Nutritional / Prandial insulin per carb ratio of 1 unit per -- grams CHO consumed PLAN FOR DISCHARGE: * A1C ~5.4% * Goal A1C <7% based on age and comorbidities * A1C on lower end of goal - Geriatric patients may be more susceptible to hypoglycemic effects of glipizide. Patient met with clinical staff educator today and denies monitoring blood sugars at home. * Patient with hypoglycemic episode during hospital admission and was asymptomatic. * Would recommend discontinuation of glipizde on discharge due to concern for hypoglycemic episodes at home and due to increased risk of hypoglycemia with glipizide in the elderly population * Okay to continue metformin on discharge - would recommend follow up with PCP post discharge for follow up and encourage SMBG * Please note that the plan above was derived based on current level of insulin resistance and hospital stress. These recommendations are appropriate for inpatient admission only. Plan of care upon discharge will need to be reassessed to avoid potential outpatient hypo/hyperglycemia. Thank you.
[2019-04-14] MEDS ORDERED: ENOXAPARIN INJ 40 MG/0.4 ML SYR SQ SCH (16:00)
[2019-04-14] MEDS: METFORMIN HCL 500 MG TAB PO SCH (17:32)
[2019-04-14] MEDS: SENNA 8.6 MG TAB PO SCH (21:09)
[2019-04-15] MEDS: ACETAMINOPHEN 500 MG TAB PO SCH ×3 (05:04→21:21)
[2019-04-15 05:11] LABS: Hematocrit (blood only) 27.9 % (42-52); Hemoglobin 9.6 g/dL (14.0-18.0); Mean Corpuscular Hemoglobin 31.3 pg (25-34); Mean Corpuscular Hgb Conc 34.4 g/dL (32-36); Mean Corpuscular Volume 90.9 fL (80-100); Mean Platelet Volume 12.2 fL (7.4-10.4); Platelet Count 146 K/uL (130-400); RDW Coefficient of Variation 13.9 % (11.5-14.5); RDW Standard Deviation 45.4 fL (36.4-46.3); Red Blood Count 3.07 M/uL (4.7-6.1); White Blood Count 10.88 K/uL (4.8-10.8)
[2019-04-15 05:37] LABS: Calcium 8.5 mg/dl (8.5-10.1); Creatinine Clr Calc Pharmacy 32.7 ml/min; Est GFR (African American) 37.8; Est GFR (Non-African American) 32.6; Potassium 4.3 mmol/L (3.5-5.1)
--- NOTE | 2019-04-15 08:25 | Orthopedic Progress Note ---
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 -RLE paraesthesia improved -DC planning POD#1 -ancef x 24 -DVT ppx: SCDs, TEDs, Lovenox -WBAT RLE -PT/OT -PO XR demonstrates well aligned well fixed prothesis without fracture/dislocation -am labs - hgb 10.6, acute blood loss anemia secondary to post op blood loss and dilutional effect, monitoring, asymptomatic -RLE paraesthesia improving, continue to monitor -DC planning Subjective Post Operative Progress Note Patient seen sitting up in bed, comfortable, denies complaints, pain well controlled, no acute issues. Denies f/c/n/v/sob/cp, numbness and weakness of RLE improved this am. Review of Systems Review of Systems: All systems reviewed & are unremarkable except as noted in HPI & below Constitutional: as per Subjective / HPI Physical Exam Physical Exam: RLE NVSI +EHL/FHL/TA/GS SILT grossly, +2 DP pulse, compartments soft NT, dressing cdi. Constitutional: WD/WN, vitals as above Results & Data ([place]) Vital Signs (Past 12 Hours) Vital Signs Temp Pulse Resp BP Pulse Ox 04/15/19 07:35 37.1 C 79 18 94/58 L 97 04/14/19 23:44 37.4 C 90 16 90/53 L 93 Laboratory Results 04/15/19 04/15/19 04/15/19 Range/Units 08:17 04:40 04:40 WBC 10.88 H (4.8-10.8) K/uL RBC 3.07 L (4.7-6.1) M/uL Hgb 9.6 L (14.0-18.0) g/dL Hct 27.9 L (42-52) % MCV 90.9 (80-100) fL MCH 31.3 (25-34) pg MCHC 34.4 (32-36) g/dL RDW Std Deviation 45.4 (36.4-46.3) fL RDW Coeff of Oleksandr 13.9 (11.5-14.5) % Plt Count 146 (130-400) K/uL MPV 12.2 H (7.4-10.4) fL Sodium 138 (136-145) mmol/L Potassium 4.3 (3.5-5.1) mmol/L Chloride 110 H (98-107) mmol/L Carbon Dioxide 21 (21-32) mmol/L Anion Gap 7.0 (3-11) BUN 33 H (7-18) mg/dl Creatinine 1.92 H D (0.6-1.4) mg/dl Est Cr Clr Drug Dosing 32.7 ml/min Est GFR ( Amer) 37.8 Est GFR (Non-Af Amer) 32.6 BUN/Creatinine Ratio 17.0 (10-20) Glucose 191 H (70-99) mg/dl POC Glucose Pending (70-99) mg/dl Calcium 8.5 (8.5-10.1) mg/dl 04/15/19 04/14/19 04/14/19 Range/Units 03:12 20:58 16:58 WBC (4.8-10.8) K/uL RBC (4.7-6.1) M/uL Hgb (14.0-18.0) g/dL Hct (42-52) % MCV (80-100) fL MCH (25-34) pg MCHC (32-36) g/dL RDW Std Deviation (36.4-46.3) fL RDW Coeff of Oleksandr (11.5-14.5) % Plt Count (130-400) K/uL MPV (7.4-10.4) fL Sodium (136-145) mmol/L Potassium (3.5-5.1) mmol/L Chloride (98-107) mmol/L Carbon Dioxide (21-32) mmol/L Anion Gap (3-11) BUN (7-18) mg/dl Creatinine (0.6-1.4) mg/dl Est Cr Clr Drug Dosing ml/min Est GFR ( Amer) Est GFR (Non-Af Amer) BUN/Creatinine Ratio (-20) Glucose (70-99) mg/dl POC Glucose 206 H 254 H 158 H (70-99) mg/dl Calcium (8.5-10.1) mg/dl 04/14/19 Range/Units 12:01 WBC (4.8-10.8) K/uL RBC (4.7-6.1) M/uL Hgb (14.0-18.0) g/dL Hct (42-52) % MCV (80-100) fL MCH (25-34) pg MCHC (32-36) g/dL RDW Std Deviation (36.4-46.3) fL RDW Coeff of Oleksandr (11.5-14.5) % Plt Count (130-400) K/uL MPV (7.4-10.4) fL Sodium (136-145) mmol/L Potassium (3.5-5.1) mmol/L Chloride (98-107) mmol/L Carbon Dioxide (21-32) mmol/L Anion Gap (3-11) BUN (7-18) mg/dl Creatinine (0.6-1.4) mg/dl Est Cr Clr Drug Dosing ml/min Est GFR ( Amer) Est GFR (Non-Af Amer) BUN/Creatinine Ratio (-20) Glucose (70-99) mg/dl POC Glucose 145 H (70-99) mg/dl Calcium (8.5-10.1) mg/dl
[2019-04-15] MEDS: MULTIVITAMIN TAB PO SCH (08:38)
[2019-04-15] MEDS: PRAVASTATIN SOD 40 MG TAB PO SCH (08:38)
[2019-04-15] MEDS: METFORMIN HCL 500 MG TAB PO SCH (08:38)
[2019-04-15] MEDS: DOCUSATE SODIUM 100 MG CAP PO SCH ×2 (08:38→20:30)
[2019-04-15] MEDS: PANTOprazole 40 MG TAB PO SCH (08:38)
[2019-04-15] MEDS: METOPROLOL TARTRATE 50 MG TAB PO SCH (08:39)
[2019-04-15] MEDS: ENOXAPARIN INJ 40 MG/0.4 ML SYR SQ SCH (08:39)
[2019-04-15] MEDS: INSULIN ASPART 100 UNITS/ML 3 ML PEN SC SCH ×4 (08:40→20:33)
[2019-04-15] MEDS ORDERED: SODIUM CHLORIDE 0.9% 1000ML 500 ML IV ONE (14:40)
--- NOTE | 2019-04-15 15:27 | Hospitalist Consultation ---
Date of Consultation April 15, 2019 Assessment & Plan (1) Failed total right knee replacement: - S/p revision right total knee on 04/13/19; POD#2. - DVT ppx with Lovenox 40 mg subQ daily. - PT/OT evaluation for discharge planning. - Bowel regimen -- having regular BMs. (2) Acute kidney injury: - Creatinine increased to 1.9 -- likely prerenal related to dehydration. Baseline ~1.4-1.5. - NS 500 cc bolus. - Repeat BMP in the morning. (3) CKD (chronic kidney disease), stage III: - Monitored as outpatient. - Renally dose all meds. (4) Acute blood loss anemia: - Hgb trending down post op -- related to acute blood loss. - Monitor CBC daily. (5) Hx of CABG: - H/o CABG x 3 in 1991. (6) Hyperlipidemia: - Continue home statin as prescribed. (7) Hypertension: - Hold home Metoprolol due to hypotension -- resume when possible to avoid holding beta blockers during operative period due to h/o CAD. - NS 500 cc bolus. (8) Diabetes: - Most recent A1C was 5.4. - Holding home oral agents. - SSI coverage -- BG has been elevated during this admission. (9) DVT prophylaxis: - SCDs; Lovenox daily. Dispo: Med/surg; will re-evaluate on 04/16, can likely be discharged to home in the morning. Supervising Physician Co-Signing Physician Notes Patient seen and examined with Wilda DANIELLE. I agree with their exam findings, review of systems, assessment and plan. I personally reviewed the lab work and imaging as well. patient recovering from right TKA revision, has wound vac in place Cr noted to be up at 1.9 from a baseline of 1.4 no chest pain, no dyspnea has some foot drop symptoms but these are chronic - IRMA on CKD stage III Cr up to 1.9, will give IV fluids as this is likely prerenal, repeat BMP in the AM, follow UO - Acute blood loss anemia as cause of post operative anemia will follow Hb closely, no signs of further bleeding, BP stable, no need for transfusion History of Present Illness Reason for Consultation: Medical Management Attending Physician: Parmjit Posada DO History of Present Illness Mr. Bianchi is a 78 year old male with past medical history of CAD s/p CABG x 3 in 1991, CKD, HLD, DM, HTN who presented for planned total right knee arthroplasty. He is doing well post op. Pt. was working with physical therapy this afternoon; therapist noted a right foot drop along with difficulty ambulating. His granddaughter was present at bedside and reported that he has a chronic right foot drop but right foot was slightly more everted than normal. He did not have mental status changes; has been alert and oriented x 3. Neuro exam was negative for deficits. Does have mild IRMA noted on labs with post op blood loss anemia. Mild hypotension noted on AM vital signs. Allergies Allergy/AdvReac Type Severity Reaction Status Date / Time acetaminophen [From Tylox] Allergy Unknown unknown Verified 04/13/19 09:47 reaction oxycodone [From Tylox] Allergy Unknown unknown Verified 04/13/19 09:47 reaction morphine Allergy unknown Verified 04/13/19 09:47 reaction naloxone Allergy unknown Verified 04/13/19 09:47 reaction pentazocine Allergy unknown Verified 04/13/19 09:47 reaction Home Medications Home Medications Medication Instructions Recorded Confirmed Type Metoprolol 50 mg PO BID 03/19/19 04/13/19 History acetaminophen [Tylenol Arthritis 650 mg PO BID 03/19/19 04/13/19 History Pain] aspirin [Aspir-81] 81 mg PO DAILY 03/19/19 04/13/19 History cholecalciferol (vitamin D3) 2,000 unit PO DAILY 03/19/19 04/13/19 History [Vitamin D3] cyanocobalamin (vitamin B-12) 500 mcg PO DAILY 03/19/19 04/13/19 History [Vitamin B-12] gemfibrozil 600 mg PO BID 03/19/19 04/13/19 History glipizide 5 mg PO DAILY 03/19/19 04/13/19 History magnesium 250 mg PO DAILY 03/19/19 04/13/19 History metformin 1,000 mg PO BID 03/19/19 04/13/19 History pravastatin 40 mg PO DAILY 03/19/19 04/13/19 History pantoprazole 20 mg PO DAILY 03/25/19 04/13/19 History acetaminophen 1,000 mg PO Q8 PRN #90 tab 04/15/19 Rx enoxaparin 40 mg SUBCUT QAM #28 syr 04/15/19 Rx hydromorphone 2 mg PO Q6H PRN #30 tab MDD 6 tabs 04/15/19 Rx sennosides [Senokot] 17.2 mg PO HS PRN #28 tab 04/15/19 Rx Patient History Medical History Arthritis Diabetes NIDDM History of heart attack 1991 - s/p CABG Hyperlipidemia Hypertension Poor historian Renal insufficiency Surgical History History of cardiac cath no stents, s/p CABG (1991) History of colonoscopy History of surgery on extremity L LEG History of total right knee replacement Hx of CABG Family History Brother Family history of colon cancer Son Family history of pancreatic cancer Has 1 child Social History Preferred Language: Mal[place]ian Communication Ability: Effective 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 Beliefs That Will Affect Care: Christianity Christianity Beliefs: EPISCOPAL Current Living Situation: Alone Other Information That Helps Us Care for You: No Feels Safe at Home: Yes Smoking Status: Former smoker Do You Dip or Chew Tobacco: Yes (3/4 CAN DAILY / ADVISED NPO) ; Smoking End Date: YRS AGO ; Hx Alcohol Use: Yes Alcohol type: beer Hx Substance Use: No Review of Systems Review of Systems: All systems reviewed & are unremarkable except as noted in HPI & below Constitutional: no fever, no chills, no fatigue, no weakness and no anorexia Respiratory: no cough, no dyspnea and no dyspnea on exertion Cardiovascular: no chest pain, no palpitations and no edema Gastrointestinal: no abdominal pain, no nausea, no vomiting and no constipation Genitourinary: no difficulty urinating Musculoskeletal: + joint pain; no back pain Integumentary: no non-healing lesions Physical Exam Physical Exam: General: Resting comfortably HEENT: NC/AT; PERRLA with EOMI; [place] conjunctiva, MMM. No erythema of posterior pharynx Neck: Supple and nontender Cardiac: RRR Lungs: CTA bilaterally Abdomen: Bowel normoactive X 4; Nontender to palpation Extremities: Warm. No edema present. Right knee with dressing in place, mild edema noted. Neuro: No neuro deficits noted on exam. Did not ambulate with patient to evaluate for right foot drop due to recent surgery/therapy session. Skin: No rash Results & Data ([facility]) Vital Signs (Past 12 Hours) Vital Signs Temp Pulse Resp BP Pulse Ox 04/15/19 07:35 37.1 C 79 18 94/58 L 97 Laboratory Results 04/15/19 04/15/19 04/15/19 Range/Units 12:34 08:17 04:40 WBC (4.8-10.8) K/uL RBC (4.7-6.1) M/uL Hgb (14.0-18.0) g/dL Hct (42-52) % MCV (80-100) fL MCH (25-34) pg MCHC (32-36) g/dL RDW Std Deviation (36.4-46.3) fL RDW Coeff of Oleksandr (11.5-14.5) % Plt Count (130-400) K/uL MPV (7.4-10.4) fL Sodium 138 (136-145) mmol/L Potassium 4.3 (3.5-5.1) mmol/L Chloride 110 H (98-107) mmol/L Carbon Dioxide 21 (21-32) mmol/L Anion Gap 7.0 (3-11) BUN 33 H (7-18) mg/dl Creatinine 1.92 H D (0.6-1.4) mg/dl Est Cr Clr Drug Dosing 32.7 ml/min Est GFR ( Amer) 37.8 Est GFR (Non-Af Amer) 32.6 BUN/Creatinine Ratio 17.0 (10-20) Glucose 191 H (70-99) mg/dl POC Glucose 171 H 185 H (70-99) mg/dl Calcium 8.5 (8.5-10.1) mg/dl 04/15/19 04/15/19 04/14/19 Range/Units 04:40 03:12 20:58 WBC 10.88 H (4.8-10.8) K/uL RBC 3.07 L (4.7-6.1) M/uL Hgb 9.6 L (14.0-18.0) g/dL Hct 27.9 L (42-52) % MCV 90.9 (80-100) fL MCH 31.3 (25-34) pg MCHC 34.4 (32-36) g/dL RDW Std Deviation 45.4 (36.4-46.3) fL RDW Coeff of Oleksandr 13.9 (11.5-14.5) % Plt Count 146 (130-400) K/uL MPV 12.2 H (7.4-10.4) fL Sodium (136-145) mmol/L Potassium (3.5-5.1) mmol/L Chloride (98-107) mmol/L Carbon Dioxide (21-32) mmol/L Anion Gap (3-11) BUN (7-18) mg/dl Creatinine (0.6-1.4) mg/dl Est Cr Clr Drug Dosing ml/min Est GFR ( Amer) Est GFR (Non-Af Amer) BUN/Creatinine Ratio (10-20) Glucose (70-99) mg/dl POC Glucose 206 H 254 H (70-99) mg/dl Calcium (8.5-10.1) mg/dl 04/14/19 Range/Units 16:58 WBC (4.8-10.8) K/uL RBC (4.7-6.1) M/uL Hgb (14.0-18.0) g/dL Hct (42-52) % MCV (80-100) fL MCH (25-34) pg MCHC (32-36) g/dL RDW Std Deviation (36.4-46.3) fL RDW Coeff of Oleksandr (11.5-14.5) % Plt Count (130-400) K/uL MPV (7.4-10.4) fL Sodium (136-145) mmol/L Potassium (3.5-5.1) mmol/L Chloride (98-107) mmol/L Carbon Dioxide (21-32) mmol/L Anion Gap (3-11) BUN (7-18) mg/dl Creatinine (0.6-1.4) mg/dl Est Cr Clr Drug Dosing ml/min Est GFR ( Amer) Est GFR (Non-Af Amer) BUN/Creatinine Ratio (10-20) Glucose (70-99) mg/dl POC Glucose 158 H (70-99) mg/dl Calcium (8.5-10.1) mg/dl PG Care Time/CCT Total # of Minutes Spent Total Time Spent with Patient: Total time spent is greater than 50% in coordination of care (as documented) at patient's floor/unit and/or counseling patient: Coding Level of Care Code 74195 Inpt Consult Level 3 Diagnoses Failed total right knee replacement T84.012A Acute kidney injury N17.9 CKD (chronic kidney disease), stage III N18.3 Acute blood loss anemia D62 Hx of CABG Z95.1 Hyperlipidemia E78.5 Hypertension I10 Diabetes E11.9 DVT prophylaxis Z29.9
[2019-04-15] MEDS: SENNA 8.6 MG TAB PO SCH (20:30)
[2019-04-15 22:09] LABS: Appearance Urine Clear (Clear); Bacteria Urine Automated Negative (Negative); Bilirubin Urine Negative (Negative); Blood Urine 2+ (Negative); Color Urine Yellow; Glucose Urine UA Negative (Negative); Ketones Urine Trace (Negative); Leukocyte Esterase Urine Negative (Negative); Nitrite Urine Negative (Negative); Protein Urine 1+ (Negative); RBC Urine Automated 0-4 /hpf (0-4); Specific Gravity Urine 1.021 (1.000-1.030); Urobilinogen Urine Negative (Negative)
[2019-04-16] MEDS: ACETAMINOPHEN 500 MG TAB PO SCH ×2 (05:33→12:41)
[2019-04-16 05:57] LABS: Hematocrit (blood only) 27.4 % (42-52); Hemoglobin 9.3 g/dL (14.0-18.0); Mean Corpuscular Hgb Conc 33.9 g/dL (32-36); Mean Corpuscular Volume 91.3 fL (80-100); Mean Platelet Volume 12.3 fL (7.4-10.4); Platelet Count 142 K/uL (130-400); RDW Coefficient of Variation 13.9 % (11.5-14.5); RDW Standard Deviation 45.4 fL (36.4-46.3); White Blood Count 8.95 K/uL (4.8-10.8)
[2019-04-16 06:36] LABS: BUN Creatinine Ratio 16.6 (10-20); Calcium 8.9 mg/dl (8.5-10.1); Creatinine Clr Calc Pharmacy 44.9 ml/min; Est GFR (African American) 55.4; Est GFR (Non-African American) 47.8
[2019-04-16] MEDS: PRAVASTATIN SOD 40 MG TAB PO SCH (08:29)
[2019-04-16] MEDS: ENOXAPARIN INJ 40 MG/0.4 ML SYR SQ SCH (08:30)
[2019-04-16] MEDS: PANTOprazole 40 MG TAB PO SCH (08:30)
[2019-04-16] MEDS: DOCUSATE SODIUM 100 MG CAP PO SCH (08:30)
[2019-04-16] MEDS: MULTIVITAMIN TAB PO SCH (08:30)
[2019-04-16] MEDS: INSULIN ASPART 100 UNITS/ML 3 ML PEN SC SCH ×2 (08:35→12:38)
--- NOTE | 2019-04-16 11:13 | Hospitalist Progress Note ---
Date of Service April 16, 2019 Assessment & Plan (1) Failed total right knee replacement: - S/p revision right total knee on 04/13/19; POD#3. - DVT ppx with Lovenox 40 mg subQ daily. - PT/OT evaluation for discharge planning. - Bowel regimen -- having regular BMs. plan to go home today with home services clear to go home from medical perspective as Cr is back to baseline (2) Acute kidney injury: - Creatinine increased to 1.9 on 04/15 -- likely prerenal related to dehydration. Baseline ~1.4-1.5. - NS 500 cc bolus. - Cr back to 1.4 today, making adequate urine, electrolytes stable safe for d/c home (3) CKD (chronic kidney disease), stage III: - Monitored as outpatient. - Renally dose all meds. (4) Acute blood loss anemia: - Hgb trending down post op -- related to acute blood loss. - Hb stable at 9.3 today, down very slightly from 9.6 no signs of further blood loss, safe for d/c (5) Hx of CABG: - H/o CABG x 3 in 1991. (6) Hyperlipidemia: - Continue home statin as prescribed. (7) Hypertension: continue to hold metoprolol on d/c as BP low normal and he takes 50mg twice a day recommend follow up with PCP next week for BP check, if BP normal/elevated then resume metoprolol (8) Diabetes: - Most recent A1C was 5.4. - Holding home oral agents. - SSI coverage -- BG has been elevated during this admission. (9) DVT prophylaxis: - SCDs; Lovenox daily. Dispo: Med/surg; will re-evaluate on 04/16, can likely be discharged to home in the morning. Subjective patient doing great today, sitting up in chair eating well, no dyspnea, no chest pain, no fevers wound vac in place on right knee, no severe pain he feels ready to go home reviewed labs, Cr down to 1.4 from 1.9, IRMA resolved Hb is stable at 9.3, no further signs of blood loss clear to go home from medical perspective Review of Systems Review of Systems: All systems reviewed & are unremarkable except as noted in HPI & below Constitutional: no fever, no sweats, no fatigue and no weakness Respiratory: no cough and no dyspnea Cardiovascular: no chest pain and no edema Gastrointestinal: no abdominal pain, no nausea, no vomiting, no constipation and no diarrhea/loose stools Musculoskeletal: + joint pain (right knee) Physical Exam Constitutional: WD/WN, vitals as above Eyes: PERRL, conjunctivae normal, anicteric sclerae ENMT: external ear and nose normal, oropharynx normal Neck: trachea midline, no thyromegaly Respiratory: normal respiratory effort, lungs clear to auscultation Cardiovascular: RRR, no murmur, no edema Gastrointestinal (Abdomen): normal bowel sounds, soft, nontender, no hepatosplenomegaly Musculoskeletal: Head/Neck/Chest: normocephalic and head atraumatic Extremities: + limited ROM of extremities (right knee) and strength 5/5 throughout; + extremities abnormal to inspection (right knee with wound vac, surgical incision), no cyanosis and no clubbing Skin: no rashes, warm and dry Neurologic: patellar DTR's 2+ bilat, sensation intact and PERRL, EOMI, accommodation nl, no face palsy, no dysarthria Psychiatric: A+Ox3, euthymic affect Lymphatic: no cervical or axillary lymphadenopathy Results & Data ([facility]) Vital Signs (Past 12 Hours) Vital Signs Temp Pulse Resp BP Pulse Ox 04/16/19 07:35 37.1 C 84 18 109/62 95 04/15/19 23:28 37.5 C 86 18 98/53 L 96 Laboratory Results Laboratory Results - last 24 hr 04/13/19 04/15/19 04/15/19 09:53 12:34 17:08 WBC RBC Hgb Hct MCV MCH MCHC RDW Std Deviation RDW Coeff of Ole[place]andr Plt Count MPV Sodium Potassium Chloride Carbon Dioxide Anion Gap BUN Creatinine Est Cr Clr Drug Dosing Est GFR ( Amer) Est GFR (Non-Af Amer) BUN/Creatinine Ratio Glucose POC Glucose 171 H 164 H Calcium Urine Color Urine Appearance Urine pH Ur Specific [place] Urine Protein Urine Glucose (UA) Urine Ketones Urine Blood Urine Nitrite Urine Bilirubin Urine Urobilinogen Ur Leukocyte Esterase Urine WBC (Auto) Urine RBC (Auto) U Hyaline Cast (Auto) U Epithel Cells (Auto) Urine Bacteria (Auto) Urine Yeast Crossmatch See Detail 04/15/19 04/15/19 04/16/19 20:27 21:55 05:37 WBC 8.95 RBC 3.00 L Hgb 9.3 L Hct 27.4 L MCV 91.3 MCH 31.0 MCHC 33.9 RDW Std Deviation 45.4 RDW Coeff of [place]ksandr 13.9 Plt Count 142 MPV 12.3 H Sodium Potassium Chloride Carbon Dioxide Anion Gap BUN Creatinine Est Cr Clr Drug Dosing Est GFR ( Amer) Est GFR (Non-Af Amer) BUN/Creatinine Ratio Glucose POC Glucose 190 H Calcium Urine Color Yellow Urine Appearance Clear Urine pH 5.0 Ur Specific [place] 1.021 Urine Protein 1+ H Urine Glucose (UA) Negative Urine Ketones Trace H Urine Blood 2+ H Urine Nitrite Negative Urine Bilirubin Negative Urine Urobilinogen Negative Ur Leukocyte Esterase Negative Urine WBC (Auto) 1-5 Urine RBC (Auto) 0-4 U Hyaline Cast (Auto) 1-5 U Epithel Cells (Auto) 5-10 H Urine Bacteria (Auto) Negative Urine Yeast Not Reportable Crossmatch 04/16/19 04/16/19 04/16/19 05:37 08:33 08:49 WBC RBC Hgb Hct MCV MCH MCHC RDW Std Deviation RDW Coeff of [place]ksandr Plt Count MPV Sodium 137 Potassium 4.0 Chloride 109 H Carbon Dioxide 22 Anion Gap 6.0 BUN 23 H Creatinine 1.40 D Est Cr Clr Drug Dosing 44.9 Est GFR ( Amer) 55.4 Est GFR (Non-Af Amer) 47.8 BUN/Creatinine Ratio 16.6 Glucose 169 H POC Glucose 181 H 199 H Calcium 8.9 Urine Color Urine Appearance Urine pH Ur Specific [place] Urine Protein Urine Glucose (UA) Urine Ketones Urine Blood Urine Nitrite Urine Bilirubin Urine Urobilinogen Ur Leukocyte Esterase Urine WBC (Auto) Urine RBC (Auto) U Hyaline Cast (Auto) U Epithel Cells (Auto) Urine Bacteria (Auto) Urine Yeast Crossmatch Medications Administered Current Inpatient Medications Acetaminophen (Tylenol) 1,000 mg PO Q8 [facility] Stop: 05/13/19 21:59 Last Admin: 04/16/19 05:33 Dose: 1,000 mg Documented by: Bisacodyl (Dulcolax) 10 mg MO DAILY PRN PRN Reason: Constipation Stop: 05/13/19 17:44 Dextrose (Dextrose 50%) 25 - 50 ml IV UD PRN; Protocol PRN Reason: Hypoglycemia Protocol Stop: 05/13/19 17:59 Diphenhydramine HCl (Benadryl Capsule) 25 mg PO Q8H PRN PRN Reason: Itching Stop: 05/13/19 17:44 Docusate Sodium (Colace) 100 mg PO BID [facility] Stop: 05/13/19 20:59 Last Admin: 04/16/19 08:30 Dose: 100 mg Documented by: Enoxaparin Sodium (Lovenox) 40 mg SQ QAM [facility] Stop: 05/14/19 08:59 Last Admin: 04/16/19 08:30 Dose: 40 mg Documented by: Glucagon (Glucagen) 1 mg IM UD PRN; Protocol PRN Reason: Hypoglycemia Protocol Stop: 05/13/19 17:59 Glucose (Glucose 40%) 15 - 30 gm PO UD PRN; Protocol PRN Reason: Hypoglycemia Protocol Stop: 05/13/19 17:59 Glucose (Dex4 Glucose) 4 - 8 tabs PO UD PRN; Protocol PRN Reason: Hypoglycemia Protocol Stop: 05/13/19 17:59 Hydromorphone HCl (Dilaudid) 2 mg PO Q4H PRN PRN Reason: Pain Stop: 04/27/19 16:37 Hydromorphone HCl (Dilaudid) 0.5 mg IV Q4H PRN PRN Reason: Pain Stop: 04/27/19 17:44 Insulin Aspart (Novolog Flexpen) 0 units SC [facility]; Protocol Stop: 05/13/19 17:59 Last Admin: 04/16/19 08:35 Dose: 7 units Documented by: Magnesium Hydroxide (Milk Of Magnesia) 30 ml PO Q6H PRN PRN Reason: Constipation Stop: 05/13/19 17:44 Metformin HCl (Glucophage) 1,000 mg PO BIDM [facility]; Protocol Stop: 05/14/19 16:59 Last Admin: 04/15/19 08:38 Dose: 1,000 mg Documented by: Metoclopramide HCl (Reglan) 10 mg IV Q6H PRN PRN Reason: Nausea And Vomiting Stop: 05/13/19 17:44 Metoprolol Tartrate (Lopressor) 50 mg PO BID [facility] Stop: 05/13/19 20:59 Last Admin: 04/15/19 08:39 Dose: Not Given Documented by: Miscellaneous (Carbohydrates For Hypoglycemia) 15 - 30 gm PO UD PRN PRN Reason: Hypoglycemia Treatment Stop: 05/13/19 17:59 Last Admin: 04/14/19 04:26 Dose: 30 gm Documented by: Miscellaneous Information (Consult Glycemic Management Pharmacy) 1 ea N/A UD PRN PRN Reason: Consult Stop: 05/13/19 17:44 Multivitamins (Multivitamin Tab) 1 tab PO QAM [facility] Stop: 05/14/19 08:59 Last Admin: 04/16/19 08:30 Dose: 1 tab Documented by: Naloxone HCl (Narcan) 0.1 mg IV Q5M PRN PRN Reason: Oversedation/Resp Depression Stop: 05/13/19 17:44 Ondansetron HCl (Zofran) 4 mg IV Q6H PRN PRN Reason: Nausea And Vomiting Stop: 05/13/19 17:44 Pantoprazole Sodium (Protonix) 40 mg PO DAILY [facility] Stop: 05/14/19 08:59 Last Admin: 04/16/19 08:30 Dose: 40 mg Documented by: Pravastatin Sodium (Pravachol) 40 mg PO DAILY [facility] Stop: 05/14/19 08:59 Last Admin: 04/16/19 08:29 Dose: 40 mg Documented by: Sennosides (Senokot) 17.2 mg PO HS [facility] Stop: 05/13/19 20:59 Last Admin: 04/15/19 20:30 Dose: 17.2 mg Documented by: PG Care Time/CCT Total # of Minutes Spent Total Time Spent with Patient: Total time spent is greater than 50% in coordination of care (as documented) at patient's floor/unit and/or counseling patient: Coding Level of Care Code 61630 Subseq Hosp Care Lvl 3 Diagnoses Failed total right knee replacement T84.012A Acute kidney injury N17.9 CKD (chronic kidney disease), stage III N18.3 Acute blood loss anemia D62 Hx of CABG Z95.1 Hyperlipidemia E78.5 Hypertension I10 Diabetes E11.9 DVT prophylaxis Z29.9
--- NOTE | 2019-04-16 11:57 | Orthopedic Progress Note ---
Date of Service April 16, 2019 Assessment & Plan (1) Failed total right knee replacement: s/p Revision R TKA POD#3 -ancef x 24 -DVT ppx: SCDs, TEDs, Lovenox -WBAT RLE -PT/OT -PO XR demonstrates well aligned well fixed prothesis without fracture/dislocation -am labs - 9.3, acute blood loss anemia secondary to post op blood loss and dilutional effect, monitoring, asymptomatic, Cr 1.4, improved, history for CKD stage 3, managed by his PCP, pre-operative Cr 1.7. -RLE paraesthesia improved, weakness at baseline -med recs appreciated -DC planning - home with POD#2 -ancef x 24 -DVT ppx: SCDs, TEDs, Lovenox -WBAT RLE -PT/OT -PO XR demonstrates well aligned well fixed prothesis without fracture/dislocation -am labs - 9.6, acute blood loss anemia secondary to post op blood loss and dilutional effect, monitoring, asymptomatic, Cr 1.92, near baseline, history for CKD stage 3, managed by his PCP, pre-operative Cr 1.7. -RLE paraesthesia improved -DC planning POD#1 -ancef x 24 -DVT ppx: SCDs, TEDs, Lovenox -WBAT RLE -PT/OT -PO XR demonstrates well aligned well fixed prothesis without fracture/dislocation -am labs - hgb 10.6, acute blood loss anemia secondary to post op blood loss and dilutional effect, monitoring, asymptomatic -RLE paraesthesia improving, continue to monitor -DC planning Subjective Post Operative Progress Note Patient seen sitting up in bed, comfortable, denies complaints, pain well c ontrolled, no acute issues. Denies F/C/N/V/SOB/CP Review of Systems Review of Systems: All systems reviewed & are unremarkable except as noted in HPI & below Constitutional: as per Subjective / HPI Physical Exam Physical Exam: RLE NVSI +EHL/FHL/TA/GS SILT grossly, +2 DP pulse, compartments soft NT, dressing cdi. Weakness to ankle dorsiflexion at baseline Constitutional: WD/WN, vitals as above Results & Data ([facility]) Vital Signs (Past 12 Hours) Vital Signs Temp Pulse Resp BP Pulse Ox 04/16/19 07:35 37.1 C 84 18 109/62 95 Laboratory Results 04/16/19 04/16/19 04/16/19 Range/Units 08:49 08:33 05:37 WBC (4.8-10.8) K/uL RBC (4.7-6.1) M/uL Hgb (14.0-18.0) g/dL Hct (42-52) % MCV (80-100) fL MCH (25-34) pg MCHC (32-36) g/dL RDW Std Deviation (36.4-46.3) fL RDW Coeff of Oleksandr (11.5-14.5) % Plt Count (130-400) K/uL MPV (7.4-10.4) fL Sodium 137 (136-145) mmol/L Potassium 4.0 (3.5-5.1) mmol/L Chloride 109 H (98-107) mmol/L Carbon Dioxide 22 (21-32) mmol/L Anion Gap 6.0 (3-11) BUN 23 H (7-18) mg/dl Creatinine 1.40 D (0.6-1.4) mg/dl Est Cr Clr Drug Dosing 44.9 ml/min Est GFR ( Amer) 55.4 Est GFR (Non-Af Amer) 47.8 BUN/Creatinine Ratio 16.6 (10-20) Glucose 169 H (70-99) mg/dl POC Glucose 199 H 181 H (70-99) mg/dl Calcium 8.9 (8.5-10.1) mg/dl Urine Color Urine Appearance (Clear) Urine pH (4.5-7.5) Ur Specific [place] (1.000-1.030) Urine Protein (Negative) Urine Glucose (UA) (Negative) Urine Ketones (Negative) Urine Blood (Negative) Urine Nitrite (Negative) Urine Bilirubin (Negative) Urine Urobilinogen (Negative) Ur Leukocyte Esterase (Negative) Urine WBC (Auto) (0-5) /hpf Urine RBC (Auto) (0-4) /hpf U Hyaline Cast (Auto) (0-5) /lpf U Epithel Cells (Auto) (0-5) /lpf Urine Bacteria (Auto) (Negative) Urine Yeast Crossmatch 04/16/19 04/15/19 04/15/19 Range/Units 05:37 21:55 20:27 WBC 8.95 (4.8-10.8) K/uL RBC 3.00 L (4.7-6.1) M/uL Hgb 9.3 L (14.0-18.0) g/dL Hct 27.4 L (42-52) % MCV 91.3 (80-100) fL MCH 31.0 (25-34) pg MCHC 33.9 (32-36) g/dL RDW Std Deviation 45.4 (36.4-46.3) fL RDW Coeff of Oleksandr 13.9 (11.5-14.5) % Plt Count 142 (130-400) K/uL MPV 12.3 H (7.4-10.4) fL Sodium (136-145) mmol/L Potassium (3.5-5.1) mmol/L Chloride (98-107) mmol/L Carbon Dioxide (21-32) mmol/L Anion Gap (3-11) BUN (7-18) mg/dl Creatinine (0.6-1.4) mg/dl Est Cr Clr Drug Dosing ml/min Est GFR ( Amer) Est GFR (Non-Af Amer) BUN/Creatinine Ratio (10-20) Glucose (70-99) mg/dl POC Glucose 190 H (70-99) mg/dl Calcium (8.5-10.1) mg/dl Urine Color Yellow Urine Appearance Clear (Clear) Urine pH 5.0 (4.5-7.5) Ur Specific [place] 1.021 (1.000-1.030) Urine Protein 1+ H (Negative) Urine Glucose (UA) Negative (Negative) Urine Ketones Trace H (Negative) Urine Blood 2+ H (Negative) Urine Nitrite Negative (Negative) Urine Bilirubin Negative (Negative) Urine Urobilinogen Negative (Negative) Ur Leukocyte Esterase Negative (Negative) Urine WBC (Auto) 1-5 (0-5) /hpf Urine RBC (Auto) 0-4 (0-4) /hpf U Hyaline Cast (Auto) 1-5 (0-5) /lpf U Epithel Cells (Auto) 5-10 H (0-5) /lpf Urine Bacteria (Auto) Negative (Negative) Urine Yeast Not Reportable Crossmatch 04/15/19 04/15/19 04/13/19 Range/Units 17:08 12:34 09:53 WBC (4.8-10.8) K/uL RBC (4.7-6.1) M/uL Hgb (14.0-18.0) g/dL Hct (42-52) % MCV (80-100) fL MCH (25-34) pg MCHC (32-36) g/dL RDW Std Deviation (36.4-46.3) fL RDW Coeff of Oleksandr (11.5-14.5) % Plt Count (130-400) K/uL MPV (7.4-10.4) fL Sodium (136-145) mmol/L Potassium (3.5-5.1) mmol/L Chloride (98-107) mmol/L Carbon Dioxide (21-32) mmol/L Anion Gap (3-11) BUN (7-18) mg/dl Creatinine (0.6-1.4) mg/dl Est Cr Clr Drug Dosing ml/min Est GFR ( Amer) Est GFR (Non-Af Amer) BUN/Creatinine Ratio (10-20) Glucose (70-99) mg/dl POC Glucose 164 H 171 H (70-99) mg/dl Calcium (8.5-10.1) mg/dl Urine Color Urine Appearance (Clear) Urine pH (4.5-7.5) Ur Specific [place] (1.000-1.030) Urine Protein (Negative) Urine Glucose (UA) (Negative) Urine Ketones (Negative) Urine Blood (Negative) Urine Nitrite (Negative) Urine Bilirubin (Negative) Urine Urobilinogen (Negative) Ur Leukocyte Esterase (Negative) Urine WBC (Auto) (0-5) /hpf Urine RBC (Auto) (0-4) /hpf U Hyaline Cast (Auto) (0-5) /lpf U Epithel Cells (Auto) (0-5) /lpf Urine Bacteria (Auto) (Negative) Urine Yeast Crossmatch See Detail
--- NOTE | 2019-04-17 09:01 | Discharge Summary ---
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 Primary total knee surgery performed in [address] Finney in [facility]. Patient was worked up pre-operatively, bone scan and inflammatory labs negative for infection. The patient has failed outpatient conservative treatments to this point which included NSAIDs, bracing and a home exercise/walking program. The patient's pain and limited function have progressed to the point where they severely hinder their activities of daily living and they no longer tolerate exercise programs. They are requesting to proceed with revision total knee replacement surgery. Principal Diagnosis Revision Right total knee replacement Discharge Exam RLE NVSI +EHL/FHL/TA/GS SILT grossly, +2 DP pulse, compartments soft NT, dressing cdi. motor strength ankle dorsiflexion at baseline Constitutional WD/WN, vitals as above Discharge Data Allergies Allergy/AdvReac Type Severity Reaction Status Date / Time acetaminophen [From Tylox] Allergy Unknown unknown Verified 04/13/19 09:47 reaction oxycodone [From Tylox] Allergy Unknown unknown Verified 04/13/19 09:47 reaction morphine Allergy unknown Verified 04/13/19 09:47 reaction naloxone Allergy unknown Verified 04/13/19 09:47 reaction pentazocine Allergy unknown Verified 04/13/19 09:47 reaction Consultations 04/13/19 17:45 Consult Case Management - Discharge Planning Routine 04/15/19 14:30 Consult Hospitalist Routine Procedures Performed Operation Date: 04/13/19 11:30 Actual Procedures p Right Total Knee Revision Arthroplasty - Tibia And Femur(Right) - Parmjit Posada DO Ordered Studies 04/13/19 05:00 US - OR guided needle placemen Routine Hospital Course (1) Failed total right knee replacement: The patient is a 78 -year-old male who presents with long standing history of 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 The patient's symptoms have progressed to the point where it has been difficult to perform even normal activities of daily living. I indicated the patient for a revision right total knee arthroplasty, the risks, benefits and complications of the procedure include but not limited to infection, bleeding, damage to bone, nerves, vessels, surrounding soft tissue, may develop blood clots, loss of function, leg length discrepancy, dislocation, failure of the components, loosening of the components, the need for additional surgery and . The patient wished to proceed with surgery at this time and informed consent was obtained. Hospital Course: On 2 the patient was taken to the operating room, adequate anesthesia administered and underwent a revision right total knee arthroplasty. The patient tolerated the procedure well and was taken to the PACU in stable condition. Post-operatively the patient was started on a DVT ppx medication and given appropriate IV antibiotics. Consults were placed to medical hospitalist, physical therapy, occupational therapy and case management. On POD#1, the patient did well overnight and their pain was well controlled. Labs were drawn and the Hgb was 10.6. The patient was slow to progress with PT. The patient had residual weakness and paraesthesia to his RLE in the a.m. Dressings were changed at this time and the incision was clean, dry and intact. Paraesthesia improved. On POD#2, the patient did well overnight, progressed with PT and labs were drawn, hgb 9.6, Cr 1.92, pre-operative Cr 1.7, hx for CKD3, medical hospitalist consulted, recs appreciated, monitored labs and avoided nephrotoxic medication. On POD#3, the patient did well overnight, progressed with PT and labs were drawn, hgb 9.3, Cr improved, 1.4. The patients hospital stay was relatively uneventful and they were deemed stable by the orthopedic team and consultants to be discharged home with on 04/16/19. Discharge Instructions: Upon discharge the patient may weight bear as tolerates through their operative extremity. They were instructed to keep the incision clean and dry at all times. The patient may shower but should not submerge the incision, avoid bathing, pools and hot tubes. The patient was given a script for pain medication and should take as instructed. The patient was given a script for DVT ppx Lovenox and should take as directed. The patient was instructed to not drive or travel for long distances until cleared to do so. If the patient develops any symptoms of fevers, chills, nausea, vomiting, increased redness, swelling, pain or drainage from the surgical site, they should notify the office and/or proceed to the nearest emergency room. The patient should follow up in 10-14 days after surgery for their routine post-operative follow-up appointment and should call the office to confirm the date and time. s/p Revision R TKA POD#3 -ancef x 24 -DVT ppx: SCDs, TEDs, Lovenox -WBAT RLE -PT/OT -PO XR demonstrates well aligned well fixed prothesis without fracture/dislocation -am labs - 9.3, acute blood loss anemia secondary to post op blood loss and dilutional effect, monitoring, asymptomatic, Cr 1.4, improved, history for CKD stage 3, managed by his PCP, pre-operative Cr 1.7. -RLE paraesthesia improved, weakness at baseline -med recs appreciated -DC planning - home with POD#2 -ancef x 24 -DVT ppx: SCDs, TEDs, Lovenox -WBAT RLE -PT/OT -PO XR demonstrates well aligned well fixed prothesis without fracture/d islocation -am labs - 9.6, acute blood loss anemia secondary to post op blood loss and dilutional effect, monitoring, asymptomatic, Cr 1.92, near baseline, history for CKD stage 3, managed by his PCP, pre-operative Cr 1.7. -RLE paraesthesia improved -DC planning POD#1 -ancef x 24 -DVT ppx: SCDs, TEDs, Lovenox -WBAT RLE -PT/OT -PO XR demonstrates well aligned well fixed prothesis without fr acture/dislocation -am labs - hgb 10.6, acute blood loss anemia secondary to post op blood loss and dilutional effect, monitoring, asymptomatic -RLE paraesthesia improving, continue to monitor -DC planning Total Time Total Time Spent Total Time Spent (In Minutes): >60 minutes Discharge Plan Discharge Items Patient Disposition: Home - Home Health Services Reason For Visit: RIGHT KNEE BROKEN INTERNAL PROSTHESIS, PAIN D/T IN Discharge Diagnosis: Revision right total knee replacement Condition on Discharge: Good Activity: Per Instructions section Lifting: Wait until after follow-up appointment Bathing: Keep incision dry Bathing Comment: No bathing, pools or hot tubs. Sexual Activity: Wait until after follow-up appointment Exercise/Sports: Wait until after follow-up appointment Driving/Machine Use: No driving Weightbearing: Full weightbearing Non-emergency contact: Primary Care Provider and Surgeon Call non-emergency contact if: you have any medication questions, your symptoms worsen, your pain is not controlled, your pain is worsening, your pain is unusual for you, your pain is concerning for you, you have a fever, your temperature is above 101, your wound has increased redness, your wound has increased drainage and your wound pain has increased Follow-up/Referrals: Marilyn Torres PA-C [Primary Care Provider] - (please make appt for next week, blood pressure check) Diet: Carb Consistent or DM2 Ambulatory Orders: Basic Metabolic Panel (Routine) Timeframe: 3 Days Location: Determined by Patient Ordered By: Parmjit Wilson Attending Provider Instructions: ACTIVITY RECOMMENDATIONS: SELF CARE INSTRUCTIONS AFTER TOTAL KNEE REPLACEMENT A. You may need to continue a physical therapy program after discharge from the hospital. There are several options available to you. Your doctor will assist you in selecting the best one for you. 1. An out-patient facility 2 to 3 times a week for therapy or home therapy. 2. Continue working on all exercises taught to you in the hospital. Your goals should be to increase bending of your knee to 90 degrees and beyond and to fully straighten your knee. B. You may progress at your own pace from walking with a walker or crutches to a cane; then to no assistive devices. C. Make walking a part of your daily routine. Be up as much as comfortable with rest periods throughout the day. Rest with leg elevation is very important. Use the ice wrap frequently for the first 3-4 weeks. D. There are no restrictions on activities. You may ride in a car, shop, participate in yeast washer and all social activities. E. Wear the long elastic stockings (JACLYN hose) 20 hours a day for 2 weeks after surgery. They can be removed several times a day for laundering and for a bath. F. You may shower, no tub baths until cleared by your doctor. SPECIAL CARE INSTRUCTIONS: VERY IMPORTANT TO READ AND REVIEW A. There are a few signs you need to watch for after you are home. Call [facility] if you notice any of the followin. Increased severe knee pain. Some pain is expected especially when you exercise. 2. Increased swelling in your leg or knee; pain or swelling of the calf muscle in either lower leg. 3. Any fluid drainage from the incision. 4. Shortness of breath or chest pain. B. Please call [facility] at if you have any concerns or questions about your operation or recovery. The doctor or his nurse will return your call promptly. C. You must take antibiotics before dental work, bladder, bowel or other surgery. Your doctor will provide you with a permanent care to carry describing this precaution. IMPORTANT: * REMEMBER TO TAKE LOVENOX 40MG DAILY FOR 4 WEEKS UNLESS OTHERWISE DIRECTED. THIS IS YOUR BLOOD THINNER. * HIGH RISK PATIENTS MAY BE PRESCRIBED A STRONGER BLOOD THINNER. THIS WILL BE PROVIDED AT DISCHARGE. * CALL IF INCREASED PAIN, REDNESS, DRAINAGE OR FEVER GREATER THAT 101. * WEAR JACLYN HOSE 20 HOURS PER DAY FOR 2 WEEKS. *PREVENA incisional vac is a special dressing covering your incision. This dressing provides a sterile dry environment while you are healing. The dressing is to be left in place for 7 days post-operatively. Your home nurse or surgeon will remove. If you develop any redness or blisters or have any questions notify your surgeon immediately. IF INCISION IS LEAKING THROUGH DRESSING, CALL THE OFFICE . FOLLOW UP VISIT: If appointment is not already scheduled: Please call [facility] to make a follow-up appointment for 2 weeks after your surgery at . Follow up BMP lab results with your PCP Marilyn Torres without 1 week of discharge. 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, Smoking Cessation Medications and DC Order Prescriptions: New acetaminophen 500 mg Tablet 1,000 mg PO Q8 PRN (Reason: pain/fever) Qty: 90 RF: 0 hydromorphone 2 mg Tablet 2 mg PO Q6H MDD 6 tabs PRN (Reason: pain) Qty: 30 RF: 0 enoxaparin 40 mg/0.4 mL Syringe 40 mg subcut QAM Qty: 28 RF: 0 sennosides [Senokot] 8.6 mg Tablet 17.2 mg PO HS PRN (Reason: constipation) Qty: 28 RF: 0 Continued pravastatin 40 mg Tablet 40 mg PO DAILY RF: 0 cyanocobalamin (vitamin B-12) [Vitamin B-12] 500 mcg Tablet 500 mcg PO DAILY RF: 0 gemfibrozil 600 mg Tablet 600 mg PO BID RF: 0 metformin 1,000 mg Tablet 1,000 mg PO BID RF: 0 magnesium 250 mg Tablet 250 mg PO DAILY RF: 0 cholecalciferol (vitamin D3) [Vitamin D3] 2,000 unit Tablet 2,000 unit PO DAILY RF: 0 glipizide 5 mg Tablet 5 mg PO DAILY RF: 0 pantoprazole 20 mg Tablet,Delayed Release (Dr/Ec) 20 mg PO DAILY RF: 0 Discontinued aspirin [Aspir-81] 81 mg Tablet,Delayed Release (Dr/Ec) 81 mg PO DAILY RF: 0 acetaminophen [Tylenol Arthritis Pain] 650 mg Tablet Extended Release 650 mg PO BID RF: 0 Metoprolol 50 mg PO BID RF: 0 Discharge Orders: Discharge Order (Routine); Ordered 04/16/19 Ordered By: Wilda Ac Admission Data Admit Date/Time: 04/13/19 16:47 Attending Provider: Parmjit Posada Admit Provider: Parmjit Posada Primary Care Provider: Marilyn Torres Other Providers: Jaime Gonzales Other Interventions: Discharge Summary Assessment (RN) Last Done: 04/16/19 12:47 DC Date/Time DO NOT enter until pt leaves facility: 04/16/19 15:04
== END 2019-04-16 15:04 | disposition home health service (06) | DRG 467 ==
LOC: ASU 09:06 → 3E 16:47